=== PATIENT | male | born 1985 | race African-American/Black ===

== ENCOUNTER 2021-10-13 08:42 | Outpatient (CLI) | payer OTHER, SELFPAY ==
--- NOTE | 2021-11-15 10:04 | WPDSLEEPSTUD ---
Sleep Study Date of Study: 10/13/21 Ordering Provider: Janis Schulz MD Interpreting Physician: Janis Schulz MD Sleep Study Type: Polysomnogram Height: 1.7 m Weight: 80.286 kg Body Mass Index: 27.7 Neck Circumference (inches): 17.5 [place]: 17 Reason for Sleep Study Loud snoring, previous use of CPAP, Sleep History Lance Garcia is a 36-year-old man with history of loud snoring. This started around 2017. He had a sleep study in 2019 and was started on CPAP. He is currently not using it because it was giving him severe headaches. This year while sleeping he woke up and could not breathe. He had food from his stomach aspirated into his mouth. He occasionally wakes with acid in his airway, choking and unable to go back to sleep due to fear of dying.? These events occurred between 1:00 a.m. and 3:00 a.m.? These episodes are often followed after eating spicy food. He occasionally awakens from sleep feeling short of breath and occasionally awakens at night with heartburn, belching or coughing. He constantly snores loudly and others complain about it. He frequently has trouble sleeping with a cold. He occasionally gasps for breath at night. He rarely has breathing problems at night observed by others. He occasionally sweats excessively at night and occasionally notices his heart pounding or beating irregularly at night. He constantly falls asleep during the day, frequently falls asleep involuntarily but never falls asleep while driving. He does not have loss of muscle tone with strong emotion. He occasionally has daytime difficulties due to excessive sleepiness. Rarely has vi dreamlike scenes upon awakening or falling asleep. He rarely feels asleep frayed to go to sleep but sometimes this is been so severe that he is afraid he might . He frequently has nightmares. He rarely remembers his dreams. He does not have racing thoughts. He occasionally feels sad, depressed or anxious. He frequently has muscular tension. Does not notice parts of his body jerking. He does not kick at night. Does not have crawling or aching feelings in his legs at night. He does not have any kind of leg pain at night. He denies morning jaw pain and denies grinding his teeth. He occasionally is bothered by pain during the day, occasionally awakened by pain at night. He rarely wakes up feeling stiff in the morning. He does not wake up with sore achy muscles. Frequently wakes up with pain in the neck and spine. He is depressed, has fatigue, take sedatives. Normal bedtime is Very late, sometimes after midnight. It takes him a while to fall asleep. He may not wake at night, or may awaken up to 3 times at night. When he wakes he will use his phone or just lying in bed and try to get back to sleep. It takes him 32 minutes to an hour to fall asleep again. He wakes between 5 and 6:00 a.m.. On the weekends he goes to bed at 1:00 a.m. and wakes between 6 and 7:00 a.m.. He estimates getting 3-4 hours of sleep at night. He takes naps in the afternoon or evening. A short nap is not refreshing. He is drowsy in the morning for 3 hours or longer. Habits: no tobacco, no caffeine, no alcohol and no recreationsl drugs. [facility] Past Medical History Medical History (Updated 11/15/21 @ 10:15 by Janis Schulz MD) Depression GERD (gastroesophageal reflux disease) YECENIA (obstructive sleep apnea) Tinea versicolor Social History Social History Smoking status: Never smoker Sleep Procedure This test was performed using the [employer] multiple channel system including EOG, EEG, submental EMG, EKG, nasal and oral airflow using thermistors and nasal pressure sensors, chest and abdominal belts for body position data, and pulse oximetry. Video monitoring was also performed. The study was scored using [facility] guidelines. Sleep Architecture The recording time is 426.6 minutes, total sleep duration 406 m
[2021-11-15 10:08] VITALS: BMI 27.7
== END 2021-10-14 06:26 | disposition home or self-care (01) ==
LOC: ANHCSM 08:44
PROVIDERS: Visit Provider Internal Medicine Critical Care Medicine
DX: G47.33 Obstructive sleep apnea (adult) (pediatric) (principal)
CPT/HCPCS: 95810